=== PATIENT | male | born 2000 | race Caucasian/White ===

== ENCOUNTER 2021-01-10 21:12 | Emergency (ER) | payer MEDICAID, OTHER ==
[~2021-01-10] VITALS: Ht 177.8 cm; Wt 87.9 kg
[~2021-01-10 21:12] MED LIST: HYDR25CA PO; OMNIPAQUE 350 MG/ML, 100ML BOTTLE ONE; QUET100T4 PO; SERT100T PO
--- NOTE | 2021-01-10 21:49 | NUR ---
Pt states having n/v today. Pt states feeling dehydrated. Having headache, chills and aches. Pt with no active vomiting at this time. Pt A&O x 3. Will monitor.
[2021-01-10] MEDS ORDERED: ONDANSETRON 2MG/ML, 2ML ONE (22:00)
[2021-01-10] MEDS ORDERED: ONDANSETRON 2MG/ML, 2ML IVPush ONE (22:00)
[2021-01-10] MEDS ORDERED: FAMOTIDINE 20 MG/2 ML IVPush ONE (22:00)
[2021-01-10] MEDS ORDERED: FAMOTIDINE 20 MG/2 ML ONE (22:00)
[2021-01-10] MEDS ORDERED: SODIUM CHLORIDE FLUSH 10ML SYR IVF ONE (22:00)
[2021-01-10] MEDS ORDERED: SODIUM CHLORIDE 0.9% 1,000ML IVBOLUS ONE (22:00)
[2021-01-10 22:31] LABS: MEAN CORPUSCULAR HEMOGLOBIN 30.1 pg (27.5-34.5); MEAN CORPUSCULAR HGB CONC 34.2 g/dL (33.2-36.2); MEAN PLATELET VOLUME 8.5 fL (7.4-10.4); PLATELET COUNT 209 x10^3/uL (130-400); RED BLOOD COUNT 5.19 x10^6/uL (4.38-5.82); RED CELL DISTRIBUTION WIDTH 13.1 % (9.4-14.8)
[2021-01-10 22:45] LABS: ALANINE AMINOTRANSFERASE 16 U/L (12-78); ALBUMIN 3.5 g/dL (3.4-5.0); CALCIUM 8.8 mg/dL (8.5-10.1); CREATININE 0.97 mg/dL (0.7-1.3); MD YES
[2021-01-10 22:57] LABS: BANDS%(MANUAL) 5 % (0-7); LYMPH#(MANUAL) 0.52 x10^3/uL (1-6.1); LYMPHS% (MANUAL) 2 % (22-44); MONOS#(MANUAL) 0.26 x10^3/uL (0.3-2.7); MONOS% (MANUAL) 1 % (2-9); SEG#(MANUAL) 23.83 x10^3/uL (1.8-8); SEGS% (MANUAL) 92 % (42-75)
[2021-01-10 22:58] LABS: <PLATELET ESTIMATE> ADEQUATE; <PLT MORPHOLOGY> NORMAL PLT MORPH; <RBC MORPHOLOGY> NORMAL
[2021-01-10] MEDS ORDERED: SODIUM CHLORIDE 0.9% 1,000 ML IV ONE (23:00)
[2021-01-10 23:19] LABS: ANION GAP 7 mmol/L (5-15); CHLORIDE 106 mmol/L (98-107)
[2021-01-10 23:44] LABS: ALKALINE PHOSPHATASE 86 U/L (45-117); BILIRUBIN,TOTAL 0.7 mg/dL (0.2-1.0); TOTAL PROTEIN 7.8 g/dL (6.4-8.2)
--- NOTE | 2021-01-11 00:44 | NUR ---
Pt states feeling much better after medications. Pt in room with playing on phone. Pt with no distress at this time. Pt requests water. NPO at this time. Will continue to monitor.
--- NOTE | 2021-01-11 00:54 | NUR ---
BEDSIDE REPORT FROM KEARA HORN, PT CARE TRANSFERRED AT THIS TIME. PT NAD, RESTING ON GURNEY, APPEARS COMFORTABLE, NO CHANGE IN CONDITION, AWAITING CT, WCTM.
--- NOTE | 2021-01-11 01:44 | NUR ---
PT UA SENT, AMBULATED TO AND FROM RESTROOM WITH A SMOOTH AND STEADY GAIT, NAD, DENIES ADDITIONAL NEEDS AT THIS TIME. RESTING IN ROOM WATCHING VIDEOS ON PHONE WITH FRIEND. JESSIE.
[2021-01-11 01:56] LABS: MICROSCOPIC AUTO
[2021-01-11 02:22] VITALS: BP 118/74
--- NOTE | 2021-01-11 02:58 | NUR ---
Patient given discharge instructions and they have confirmed that they understand the instructions. Patient ambulatory with steady gait. NAD, DENIES ADDITIONAL QUESTIONS OR NEEDS A THIS TIME, NO PERSONAL BELONGINGS LEFT IN ROOM AFTER DC.
== END 2021-01-11 03:00 | disposition home or self-care (01) ==
LOC: ED 21:51
DX: D72.829 Elevated white blood cell count, unspecified (principal); K52.9 Noninfective gastroenteritis and colitis, unspecified; R11.2 Nausea with vomiting, unspecified; R51.9 Headache, unspecified; R10.84 Generalized abdominal pain
CPT/HCPCS: 36415; 74177; 80053; 81001; 83690; 85025; 96361; 96374; 96375; 99285; J2405; J7030; Q9967